=== PATIENT | male | born 1970 | race Caucasian/White ===

== ENCOUNTER 2024-03-22 19:14 | Inpatient (IN) | payer BC, SELFPAY ==
[2024-03-22] VITALS (14 sets, daily range): BP systolic 109–178; BP diastolic 74–101; PULSE 67; BMI 41.1
[2024-03-22 16:49] LABS: % Basophils 0.8 % (0-2); % Eosinophils 3.3 % (0-6); % Immature Granulocytes 0.3 % (0-0.5); % Lymphocytes 21.1 % (20.5-51.1); % Monocytes 8.6 % (1.7-9.3); % Neutrophils 65.9 % (42.2-75.2); Absolute Basophils 0.1 10^3/uL (0-0.2); Absolute Eosinophils 0.3 10^3/uL (0-0.7); Absolute Lymphocytes 2.1 10^3/uL (1.2-3.4); Absolute Monocytes 0.9 10^3/uL (0.1-0.6); Absolute Neutrophils 6.5 10^3/uL (1.4-6.5); Hematocrit 40.2 % (39.0-52.0); Hemoglobin 14.6 g/dL (13.0-18.0); Mean Corp Hgb Conc. 36.3 g/dL (33.0-37.0); Mean Corpuscular Hgb 32.4 pg (27.0-31.0); Mean Corpuscular Volume 89.3 fL (80.0-94.0); Mean Platelet Volume 10.1 fL (7.4-10.4); Nucleated Red Blood Cells % 0 % (-); Platelet Count 218 10^3/uL (130-400); Red Cell Dist. Width 12.6 % (11.5-14.5); White Blood Cell Count 9.9 10^3/uL (4.8-10.8)
--- NOTE | 2024-03-22 17:06 | ED.PDOC.TRB ---
ED Provider Triage
-
Patient seen by provider in Triage?: Seen in Triage
A medical screening examination has been initiated by a qualified medical provider. Based on the assessment performed at this time, it has been determined that an emergent medical condition may exist and the patient has been informed that further
medical evaluation and possible additional diagnostic testing may be needed.
This is a medical evaluation conducted in person to initiate diagnostic evaluation and provide initial therapeutics. Please see further documentation by the treating clinician.
GENERAL: Alert , in no apparent distress
EYE: No visual abnormalities
NECK: No visual changes
ENT: No visual abnormalities
CARDIAC:
LUNGS: Breathing normally
ABDOMEN:
NEUROLOGICAL: Alert and oriented, no visual focal neuro deficits
SKIN: Warm and dry, skin intact.
MUSCULOSKELETAL: No edema, well perfused. Moving normally
PSYCH: Normal and appropriate interaction.
HPI/RA Plan: Central chest pressure radiating to the shoulders and jaw intermittently without specific palliation or provocation over the past 3 days or so. Slightly worse today associated shortness of breath no nausea vomiting or diaphoresis. No
known history of heart disease. Heart and lung exam normal here. EKG with some nonspecific changes. No old EKGs for comparison. Troponin pending patient will need further otherwise stable at this time. No specific risk factors for PE
[2024-03-22 17:09] LABS: ALT (SGPT) 45 U/L (0-50); AST (SGOT) 41 U/L (17-59); Albumin 4.7 g/dl (3.5-5.0); Alkaline Phosphatase 101 U/L (38-126); Blood Urea Nitrogen 17 mg/dl (9-20); Calcium 10.2 mg/dl (8.4-10.2); Carbon Dioxide 19 mmol/L (22-30); Chloride 108 mmol/L (98-107); Glucose 91 mg/dl (70-99); Lipase 58 U/L (23-300); Potassium 3.9 mmol/L (3.5-5.1); Sodium 136 mmol/L (135-145); Total Bilirubin 0.9 mg/dl (0.2-1.3); Total Protein 7.3 g/dl (6.3-8.2); eGFR > 60.00
[2024-03-22] MEDS: ASPIRIN 325 MG PO (17:18)
--- NOTE | 2024-03-22 17:40 | ED.GENMED ---
History of Present Illness
General
Chief Complaint: Chest Pain
Source: patient
Exam Limitations: none
Time Seen by Provider: 03/22/24 17:40
Nursing documentation reviewed up to this point in time: agreed with
History of Present Illness
History of Present Illness:
53-year-old male presents emergency room complaining of central chest pressure rating to the shoulders and jaw intermittently for the past 3 days. Is worse today, with some shortness of breath. No history of coronary artery disease. Patient seen
in triage initially, with EKG is not revealing STEMI, but continued chest pain.
Past History
Past History
ED Past Medical History: GERD
ED Past Surgical History: None
Social History
Tobacco: Non-smoker
Alcohol: None
Drug: None
Personal:
Living: with family
Employment: Employed
Review of Systems
Review of Systems
Allergies reviewed?: Yes
All Other Systems: Not applicable
Constitutional: Reports no symptoms
EENT: Reports mouth pain
Respiratory: Reports trouble breathing
Cardiac: Reports chest pain
ABD/GI: Reports no symptoms
: Reports no symptoms
Musculoskeletal: Reports no symptoms
Skin: Reports no symptoms
Neurological: Reports no symptoms
Endocrine: Reports no symptoms
Hematologic/Lymphatic: Reports no symptoms
Psychiatric: Reports no symptoms
Phy Exam
Physical Exam
Physical Exam:
Physical Exam
General: Appears uncomfortable
Neck: supple. no meningeal signs. normal posterior pharynx
Heart: s1/s2 regular rate and rhythm, no murmur. equal radial
pulses.
HEENT: Pupils equal round reactive to light, EOMI
Lungs: no acute respiratory distress. clear bilaterally
Abdomen: normal bowel sounds. not tender. no CVAT
Neuro: alert and oriented. no focal neurological deficits cranial nerves II through XII intact
Skin: no rash
Psychiatric: well kept. interactive and cooperative
Extremities: no edema. no calf tenderness. negative homans. good distal pulses
Scores
Heart Score for Chest Pain Patients
STEMI patient?: No
History: Highly Suspicious
ECG: Nonspecific Repolarization
Age: >45 - <65 years
Risk Factors: No Risk Factors
Troponin: >/= 3 x Normal Limit
Heart Score for Chest Pain Patients: 6
Heart Score Risk: 20.3% MACE over next 6 weeks
Course
Orders/Labs/Results
Orders:
Orders
03/22/24 16:13
Electrocardiogram (*1) Urgent
Reason for Study: Chest Pain
EKG- Treatment ONCE
03/22/24 16:20
CXR2 [CR Chest - 2 Views ] Urgent
Comment: since
Reason For Exam: intermit chest pain and pressure
03/22/24 16:40
Complete Blood Count/With Diff Urgent
Comprehensive Metabolic Panel Urgent
Lipase Urgent
Troponin I Urgent
03/22/24 17:08
Aspirin 325 mg PO NOW STA
03/22/24 17:28
EKG [Electrocardiogram (*1)] Urgent
Reason for Study: Chest Pain
EKG- Treatment ONCE
03/22/24 17:43
Nitroglycerin Sublingual [Nitrostat (Sublingual)] 0.4 mg SL NOW STA
03/22/24 17:44
Lidocaine 2% Mpf [Xylocaine Mpf 2%] 400 mg .ROUTE .STK-MED ONE
03/22/24 17:46
Verapamil Injectable [Isoptin/Verapamil Injection] 5 mg .ROUTE .STK-MED ONE
03/22/24 17:47
Heparin 10,000 units .ROUTE .STK-MED ONE
Heparin 1000 Units/500 ml [Heparin] 1,000 units in 500 ml .ROUTE .STK-MED
Heparin Sodium,Porcine/Ns/Pf [Heparin 2000 Units/1000 ml] 2,000 unit in 1,000 ml .ROUTE .STK-MED
Nitroglycerin [Tridil] 1,500 mcg .ROUTE .STK-MED ONE
03/22/24 17:58
Fentanyl Citrate/Pf [Sublimaze] 100 mcg .ROUTE .STK-MED ONE
Midazolam HCl [Versed] 2 mg .ROUTE .STK-MED ONE
03/22/24 18:30
Heparin 5,000 units .ROUTE .STK-MED ONE
Ticagrelor [Brilinta] 180 mg .ROUTE .STK-MED ONE
03/22/24 18:41
Midazolam HCl [Versed] 2 mg .ROUTE .STK-MED ONE
Abnormal Lab Results
03/22/24 03/22/24 03/22/24
16:40 18:13 18:20
RBC 4.50 L 10^6/uL
(4.70-6.10)
MCH 32.4 H pg
(27.0-31.0)
Absolute Monos (auto) 0.9 H 10^3/uL
(0.1-0.6)
Chloride 108 H mmol/L
(98-107)
Carbon Dioxide 19 L mmol/L
(22-30)
Troponin I 0.560 H* ng/ml
POC ACT Low Range 229 H Seconds 297 H Seconds
(116-155) (116-155)
03/22/24
18:48
RBC
MCH
Absolute Monos (auto)
Chloride
Carbon Dioxide
Troponin I
POC ACT Low Range 397 H Seconds
(116-155)
03/22/24 16:40
03/22/24 16:40
Vital Signs
Initial and Last Documented VS:
Initial Vital Signs
Temp Pulse Resp BP Pulse Ox
98.2 F 78 16 172/101 98
03/22/24 16:14 03/22/24 16:14 03/22/24 16:14 03/22/24 16:14 03/22/24 16:14
Last Documented Vital Signs
Temp Pulse Resp BP Pulse Ox
98.2 F 66 12 143/80 98
03/22/24 16:14 03/22/24 18:00 03/22/24 18:00 03/22/24 17:50 03/22/24 17:50
MDM/Problems Addressed
Differential Diagnosis Includes:
PE, STEMI
MDM/Problems Addressed:
53-year-old male with ACS. EKG not revealing STEMI, but elevated troponin and continued pain. Discussed with Dr. Mcneil who will take to [facility].
*Pulse Oximetry
Patient hypoxic: no
*EKG
Interpreted by ED Provider?: Yes
EKG Intrepretation Date: 03/22/24
EKG Intrepretation Time: 16:16
Interpretation: abnormal
Comparison EKG: no comparison EKG present
Heart Rate: 68
Rate: normal
Rhythm: sinus
Savage: normal axis
Interval: normal interval
QRS Pattern: right bundle branch block
Ischemia: no ischemia
*Stitchdown Thread Laster Interpretation
Rate: normal
Interpretation: normal
Heart Rate: 76
Rhythm: sinus
*Critical Care Note
Total Time (30-74mins, 75-104mins- exclusive of procedures): Not Applicable
Patient Management
Social determinants of health affecting care: Living situation
Discussion with other providers: Fishery Division Chief (Cardiology Dr. Myers)
Escalation/DeEscalation of care consider admission/obs:
Admit to [facility] indicated
ED Attending Note
-
Portions of this chart may have been created with voice recognition software.� Occasional wrong word or��sound alike� substitutions may have occurred due to the inherent limitations of voice recognition software.
Discharge Plan
Departure
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
Date of Disposition: 03/22/24
Time of Disposition: 17:39
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
Presentation/result/management discussed w/ accepting MD/DO: Guidera, cardioinvasive
Condition: Serious
Discharge Problem:
Acute coronary syndrome
Interventions
Interventions:
*Risk Screen - Suicide Last Done: 03/22/24 17:51
*General Assessment Last Done: 03/22/24 17:38
*Neglect/Abuse Screening Last Done: 03/22/24 18:22
ED- Fall Risk Assessment Last Done: 03/22/24 17:51
*ED COVID-19 Vaccine History Last Done: 03/22/24 17:50
*Nursing Disposition Last Done: 03/22/24 18:22
ED- Cardiac Assessment Last Done: 03/22/24 17:51
Discharge Date and Time
Discharge Date/Time: 03/22/24 18:22
[2024-03-22] MEDS: NITROSTAT (SUBLINGUAL) 0.4 MG SL (17:47)
[2024-03-22 18:19] LABS: ACT-LR - POC 229 Seconds (116-155)
[2024-03-22 18:30] LABS: ACT-LR - POC 297 Seconds (116-155)
[2024-03-22 18:55] LABS: ACT-LR - POC 397 Seconds (116-155)
--- NOTE | 2024-03-22 19:09 | ITS.CL.CATH ---
Environmental Health And Safety Leader - Catheterization
Cardiac Catheterization
Procedure Report:
CARDIAC CATHETERIZATION REPORT
Date of Procedure: 03/22/2024
Referring: Faisal Lyles DO (CHRISTINER)
Indication: Inferior STEMI x 3 hours duration
HEMODYNAMIC DATA
AO: 121/83 mmHg
LV: 131/13 (21) mmHg
�
LEFT VENTRICULOGRAPHY: not performed
�
CORONARY ANGIOGRAPHY
Dominance: right
Left Main: normal
LAD: There is a 20-30% stenosis in the mid-LAD distal to the takeoff of the first diagonal branch. The remainder of the LAD system has mild luminal irregularities.
Circumflex: There is a complex 95% bifurcation lesion (1,0,0) at the bifurcation of the large OM2 and the continuation of the circumflex. OM1 is a small vessel with mild disease. The mid-LCx proximal to the OM2 has mild luminal disease.
RCA: The RCA is a dominant vessel with trivial luminal irregularities. The RCA terminates with a medium-sized RPDA and small posterolateral system.
PCI with RADHA to LCx: The LCx lesion was felt to be the culprit lesion for the patient's presentation and the decision was made to proceed with PCI with provision stenting of the mid-LCx into OM2 with protection of the distal LCx.. A BMW coronary
wire was placed in the distal OM2 and the distal LCx was protected with a Runthrough coronary wire. Initial lesion preparation was performed across the origin of the OM2 with a 2.0x15 mm balloon. Subsequent angiography demonstrated BERNICE 3 flow
distally. A 3.5x22 mm Medtronic RADHA was selected and deployed in the mid-LCx into OM2 at nominal pressure. Angiographic result was excellent with full apposition and expansion and no evidence of dissection and BERNICE-3 flow in the OM2 and jailed
distal LCx. Given concern for propagating thrombus or compromising the jailed LCx, and excellent proximal stent sizing, proximal optimization was not performed. After removal of wires, final angiography again demonstrated BERNICE-3 flow distally and no
evidence of complication. The guide was removed and a TR band placed.
Closure Device: TR band (10 mmHg)
�
Fluoro Time (mins): 11.5
Radiation (mGy): 1057.18
DAP (cm2.Gy): 100.44
�
CONCLUSIONS
1:� Coronary angiography demonstrates single vessel obstructive coronary artery disease in a right dominant system in the setting of STEMI with 95% stenosis involving the bifurcation of the mid-LCx and large OM2.
2:� Successful PCI to the mid-LCx into OM2 with placement of a 3.5x22 mm Medtronic RADHA.
3: Continue DAPT for at least 1 year with ASA and ticagrelor.
4. Aggressive secondary prevention of coronary artery disease with goal LDL<70
5. Smoking cessation
6. Echo prior to discharge
�
Copy to: Scott Serrano MD, PhD; Gregg Hamilton MD
�
Scott Serrano MD, PhD
--- NOTE | 2024-03-22 19:31 | CON.CAR ---
Medical History
-
Chief Complaint: CC
History of Present Illness:
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 He noted onset of intermittent exertional chest tightness 4 days ago- episodes came during exertion and had radiation to LUE. They became very
frequent and more intense this AM and at approximately 330 PM became unremitting. He was brought to ER and ECG nondiagnostic for inferior STEMI but suggestive with 1/2 mm MARCUS 2, 3, and aVF. Dr Lyles and I discussed the situation and STEMI alert
called.
Meds Omeprazole 20qd
All PCN
EXAM 125/76 P 76 RR 24
cor RR S1S2 no murmur
Lungs Clear
Ext 1+edema bilat LEs
Neuro nonfocal
Labs : Trop 0.56
IMP Probable IMI
Plan Immediate cath and probable PCI
Allergies / Home Medications
Allergy/AdvReac Type Severity Reaction Status Date / Time
Penicillins Allergy Anaphylaxis Verified 03/22/24 16:20
�Medication �Instructions �Recorded �Confirmed �Type
omeprazole 20 mg capsule,delayed 20 mg PO DAILY 03/22/24 03/22/24 History
release
Physical Exam
Vital Signs
Temp Pulse Resp BP Pulse Ox
98.2 F 66 12 143/80 98
03/22/24 16:14 03/22/24 18:00 03/22/24 18:00 03/22/24 17:50 03/22/24 17:50
Lab Results
03/22/24 16:40
03/22/24 16:40
Troponin I 0.560 ng/ml H* 03/22/24 16:40
[2024-03-22] MEDS: LOPRESSOR PO (19:56)
--- NOTE | 2024-03-22 20:01 | PTCARENOTE ---
received patient from the laboratory administrative director. AAOx3. EKG completed. SB-SR 50s-60s. bp stable. complaining of 2/10 R arm pain. patient states much improved from admission. R radial site CDI. TR band intact. +pulse/good cap refill. family at the bedside.
reviewed plan of care with patient and verbalized understanding.
per Dr. Myers-hold PM dose of lopressor and start in AM.
[2024-03-22] MEDS: NSS 1000 IV (20:10)
--- NOTE | 2024-03-22 21:11 | PTCARENOTE ---
patient states wearing CPAP at home. updated Adam LONDONO for CPAP order. order placed.
[2024-03-22] MEDS: TYLENOL 650 MG PO (22:29)
--- NOTE | 2024-03-22 22:39 | PTCARENOTE ---
Addendum entered by Rico Ramirez RN 03/22/24 23:21:
patient denies any pain at this time. CPAP placed by respiratory. R radial site intact. call melgar within reach.
Original Note:
continued 2/10 R shoulder pain. patient states its better but just not going away. troponin sent. discussed plan with Adam LONDONO. Tylenol given, see mar. educated patient to inform RN with any changes/increased pain.
R radial band removed. gauze/teg applied. + radial pulses. reviewed activity restrictions and verbalized understanding.
ambulated to the BR. steady on his feet. denies any lightheadedness/dizziness.
[2024-03-23] VITALS (7 sets, daily range): BP systolic 102–119; BP diastolic 59–85
[2024-03-23 03:58] LABS: Hematocrit 35.4 % (39.0-52.0); Hemoglobin 12.8 g/dL (13.0-18.0); Mean Corp Hgb Conc. 36.2 g/dL (33.0-37.0); Mean Corpuscular Hgb 32.7 pg (27.0-31.0); Mean Corpuscular Volume 90.3 fL (80.0-94.0); Mean Platelet Volume 10.3 fL (7.4-10.4); Platelet Count 190 10^3/uL (130-400); Red Blood Cell Count 3.92 10^6/uL (4.70-6.10); Red Cell Dist. Width 12.9 % (11.5-14.5); White Blood Cell Count 7.5 10^3/uL (4.8-10.8)
[2024-03-23 04:07] LABS: Blood Urea Nitrogen 16 mg/dl (9-20); Calcium 9.2 mg/dl (8.4-10.2); Carbon Dioxide 23 mmol/L (22-30); Chloride 109 mmol/L (98-107); Estimated Creatinine Clearance 116 ml/min; Glucose 95 mg/dl (70-99); HDL Cholesterol 52 mg/dl; LDL Cholesterol, Calculated 127 mg/dl; Potassium 4.1 mmol/L (3.5-5.1); Sodium 138 mmol/L (135-145); Total Cholesterol 205 mg/dl (50-199); Triglyceride 132 mg/dl (10-149); Very Low Density Lipoprotein 26 mg/dl (0-30); eGFR > 60.00
[2024-03-23 08:07] LABS: Glycohemoglobin (HgbA1c) 5.2 % (4.0-5.6)
[2024-03-23] MEDS: LOPRESSOR 25 MG PO (08:46)
[2024-03-23] MEDS: LOW STRENGTH ASPIRIN 81 MG PO (08:46)
[2024-03-23] MEDS: ZESTRIL 5 MG PO (08:46)
[2024-03-23] MEDS: BRILINTA 90 MG PO ×2 (08:46→20:40)
[2024-03-23] MEDS: TYLENOL 650 MG PO ×3 (08:58→22:21)
--- NOTE | 2024-03-23 09:04 | W.PN.CARDCBS ---
Addendum entered and electronically signed by Scott Serrano MD 03/23/24 11:24:
Patient seen an examined. Agree with note by MICHAEL George.
Mr. Baeza is a 53 year old male smoker with HLD and GERD presenting with inferior STEMI s/p PCI to culprit LCx/OM2 with 3.5x22 mm RADHA with excellent result. Patient today reports no chest pain and mild ongoing residual upper arm pain. Labs notable
for stable Cr and Hb, LDL 127 (prior to initiation of statin), A1c 5.2, trop rising to 3. ECG with improvement in inferior ST elevations and stable sinus bradycardia with iRBBB, no arrhythmias on tele.
Follow trop to peak and check echo today. Recommend continued DAPT with ASA/ticag (check ticag for cost, prasugrel would be second choice, followed by Plavix), and high intensity statin for goal LDL at least <70. Continue metoprolol, can consolidate
to succinate prior to discharge. Continue lisinopril. Aggressive risk factor management and particularly smoking cessation will be critical to his intermediate frame tender survival. Cardiac rehab and follow up with me in 1 month.
Original Note:
Today's Communication / Plan
-
continue post OK care
DAPT
Impression / Plan
-
PCP: Gregg Hamilton MD
CDY: Gokul Serrano MD (new to pt)
Impression/Plan:
Inferior STEMI - post PCI mid LCx into OM2 3.5x22mm RADHA
no cp, still with some residual right arm pain, rad site stable
serial troponin to peak, 3.06, Check ECHO today
tele SR/SB no ectopy
DAPT ASA/Brilinta, CM to eval cost
new start to metoprolol and lisinopril, monitor HR/BP titrate as able
LDL 127, high intensity statin
CArdiac rehab c/s
f/u CBC in 2-4 weeks
GERD - continue PPI
Smoking - cessation reinforced
continue to monitor on tele another 24 hours
�
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
Subjective
Date of Service: March 23, 2024
no cp, 2/10 right arm pain rad to shoulder, no sob
Objective
Labs:
03/23/24 03:40
03/23/24 03:40
Labs
Hgb 12.8 g/dL (13.0-18.0) L 03/23/24 03:40
Hct 35.4 % (39.0-52.0) L 03/23/24 03:40
Plt Count 190 10^3/uL (130-400) 03/23/24 03:40
Sodium 138 mmol/L (135-145) 03/23/24 03:40
Potassium 4.1 mmol/L (3.5-5.1) 03/23/24 03:40
BUN 16 mg/dl (9-20) 03/23/24 03:40
Creatinine 0.9 mg/dL (0.7-1.3) 03/23/24 03:40
Glucose 95 mg/dl (70-99) 03/23/24 03:40
Troponins
03/22/24 03/22/24 03/23/24
16:40 21:59 03:40
Troponin I 0.560 H* 1.360 H* D 3.060 H* D
Vital Signs and I&O:
Vital Signs
Temp Pulse Resp BP Pulse Ox
97.4 F 58 16 119/85 98
03/23/24 07:33 03/23/24 08:46 03/23/24 07:33 03/23/24 08:46 03/23/24 07:33
Vital Signs
Temp Pulse Resp BP Pulse Ox
97.4 F 58 16 119/85 98
03/23/24 07:33 03/23/24 08:46 03/23/24 07:33 03/23/24 08:46 03/23/24 07:33
Intake & Output
03/21/24 03/22/24 03/23/24 03/24/24
06:59 06:59 06:59 06:59
Intake Total 1150 / 1150 420 / 420
Balance 1150 / 1150 420 / 420
Physical Exam
Physical Exam
NAD< AOX3
S1, S2, RRR
CTAB< non labored, no wheeze
SNTND Bsx4
R rad site c/d/i no HT, good pulse
--- NOTE | 2024-03-23 09:44 | CM ---
Reviewed chart. Met with Mr. Baeza to review discharge plans. He states prior to admission he resides with his spouse, daughter and son in a one story home with one step to enter. He states prior to admission he was independent with ambulation
and adls. He states he uses a CPAP Machine at home and no other DME . He states he has a prescription plan and uses [facility] in [place]. Telephone call to [facility] to check on co-pay and if they have Brilinta in stock. His
co-pay is $35.00 a month. He has a commercial insurance so he can use the $5.00 coupon. Placed the coupon is his red discharge folder. [facility] in [place] does not have it in stock. Medical work-up in progress. The discharge plan is
to return home with his spouse and children when medically stable.
--- NOTE | 2024-03-23 12:08 | PTCARENOTE ---
Pt c/o intermittent 'chest tightness' since this morning. Pt states that it doesn't last long. Pt states that it worsened during the echocardiogram but is now gone. Will monitor.
--- NOTE | 2024-03-23 15:21 | PTCARENOTE ---
Pt continues to c/o right shoulder 'dull ache'. He rates this discomfort as 2 out of 10. Tylenol given. Will monitor.
[2024-03-23] MEDS: LOVENOX 40 MG SC (17:56)
[2024-03-23] MEDS: LIPITOR 80 MG PO (17:56)
[2024-03-23] MEDS: PROTONIX 20 MG PO (20:37)
--- NOTE | 2024-03-24 02:58 | PTCARENOTE ---
Rec'd pt at change of shift. Pt on cardiac technologist in normal sinus rhythm. Pt had mild right shoulder pain that is chronic and was given Tylenol per order for pain. Pt resting in bed with CPAP on and call melgar within reach.
[2024-03-24 04:27] VITALS: BP 101/64
[2024-03-24 04:44] VITALS: BP 101/64
[2024-03-24 04:49] VITALS: BMI 40.2
[2024-03-24 04:53] LABS: Hematocrit 35.2 % (39.0-52.0); Hemoglobin 12.5 g/dL (13.0-18.0); Mean Corp Hgb Conc. 35.5 g/dL (33.0-37.0); Mean Corpuscular Hgb 32.3 pg (27.0-31.0); Mean Platelet Volume 10.6 fL (7.4-10.4); Platelet Count 195 10^3/uL (130-400); Red Blood Cell Count 3.87 10^6/uL (4.70-6.10); White Blood Cell Count 7.2 10^3/uL (4.8-10.8)
[2024-03-24 05:17] LABS: Blood Urea Nitrogen 16 mg/dl (9-20); Calcium 9.6 mg/dl (8.4-10.2); Carbon Dioxide 23 mmol/L (22-30); Chloride 107 mmol/L (98-107); Estimated Creatinine Clearance 115 ml/min; Glucose 91 mg/dl (70-99); Potassium 4.4 mmol/L (3.5-5.1); Sodium 135 mmol/L (135-145); eGFR > 60.00
[2024-03-24 07:35] VITALS: BP 106/67
--- NOTE | 2024-03-24 07:45 | W.PN.CARDCBS ---
Addendum entered and electronically signed by Manuel Velazquez MD 03/24/24 13:36:
I saw and examined the patient.
The SEAWEED HARVESTER's note was reviewed and I agree with the note.
Comment: Patient seen and examined on the day of discharge. He is feeling well without complaint to me. On exam he has a regular rate and rhythm normal S1-S2 no murmur rubs or gallops were appreciated. Right radial artery site intact. Given his
inferior STEMI, we discussed the need for dual antiplatelet therapy without any interruption. He will continue on his KATIE inhibitor, beta-dulce and high-dose statin. We discussed the need for complete smoking cessation. Additionally given his
moderate moderate obesity, would recommend GLP-1 agonist�Ozempic given CV benefits in addition to that of treating obesity. I asked him to discuss this with his PCP. Will arrange follow-up.
Addendum entered and electronically signed by VERONICA Ricketts 03/24/24 11:18:
BMI 40.1, class III obesity due to excess calories - reinforced heart healthy diet, wt loss and exercise
Original Note:
Today's Communication / Plan
-
oob ambulate
poss d/c home later today if VSS
Impression / Plan
-
PCP: Gregg Hamilton MD
CDY: Gokul Serrano MD (new to pt)
Impression/Plan:
Inferior STEMI - post PCI mid LCx into OM2 3.5x22mm RADHA
no cp, still with some residual right arm pain ? musculoskeletal, rad site stable
troponin peaked at 3.06
ECHO- EF 55-60%, no sig WMA, mild LVH, no valve disease
tele SR/SB no ectopy
DAPT ASA/Brilinta
HR low will switch to Toprol 25mg daily, continue lisinopril 5mg, monitor bp at home
LDL 127, continue atorvastatin 80mg daily
Cardiac rehab c/s
f/u CBC in 2-4 weeks
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
GERD - continue PPI
Smoking - cessation reinforced
CHARBEL/CPAP
monitor HR/BP after am meds, oob ambulate hallways
poss d/c home later this afternoon
�
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
Subjective
Date of Service: March 24, 2024
no cp, notes some mild SOB and still with R arm pain 09/27 ? musculoskeletal
Objective
Labs:
03/24/24 04:38
03/24/24 04:38
Labs
Hgb 12.5 g/dL (13.0-18.0) L 03/24/24 04:38
Hct 35.2 % (39.0-52.0) L 03/24/24 04:38
Plt Count 195 10^3/uL (130-400) 03/24/24 04:38
Sodium 135 mmol/L (135-145) 03/24/24 04:38
Potassium 4.4 mmol/L (3.5-5.1) 03/24/24 04:38
BUN 16 mg/dl (9-20) 03/24/24 04:38
Creatinine 0.9 mg/dL (0.7-1.3) 03/24/24 04:38
Glucose 91 mg/dl (70-99) 03/24/24 04:38
Troponins
03/22/24 03/22/24 03/23/24
16:40 21:59 03:40
Troponin I 0.560 H* 1.360 H* D 3.060 H* D
03/23/24
10:01
Troponin I 2.540 H*
Vital Signs and I&O:
Vital Signs
Temp Pulse Resp BP Pulse Ox
97.6 F 58 18 101/64 97
03/24/24 07:33 03/24/24 07:33 03/24/24 07:33 03/24/24 04:44 03/24/24 07:33
Vital Signs
Temp Pulse Resp BP Pulse Ox
97.6 F 58 18 101/64 97
03/24/24 07:33 03/24/24 07:33 03/24/24 07:33 03/24/24 04:44 03/24/24 07:33
Intake & Output
03/22/24 03/23/24 03/24/24 03/25/24
06:59 06:59 06:59 06:59
Intake Total 1150 / 1150 420 / 420
Balance 1150 / 1150 420 / 420
Physical Exam
Physical Exam
NAD, AOX3
S1, S2, RRR
CTAB, non labored, no wheeze
SNTND bsx4
Rad site stable, good pulse
[2024-03-24] MEDS: ZESTRIL 5 MG PO (08:21)
[2024-03-24] MEDS: PROTONIX 20 MG PO (08:21)
[2024-03-24] MEDS: BRILINTA 90 MG PO (08:21)
[2024-03-24] MEDS: LOW STRENGTH ASPIRIN 81 MG PO (08:22)
[2024-03-24] MEDS: TOPROL XL 25 MG PO (08:22)
[2024-03-24] MEDS: TYLENOL 650 MG PO (10:04)
--- NOTE | 2024-03-24 10:06 | PN.CDI ---
CDI
- -
CDI:
Physician Documentation Request
Admit Date: 03/22/24 19:14
Dear Stephanie George NP,
Please review the following and provide your response in the progress notes.
Clinical Indicators:
Height: 5 ft 6 in
Weight:248 lb 10.9 oz
BMI: 41.1
If possible, please provide an associated diagnosis related to the abnormal BMI, such as:
BMI > or = to 40
Obesity:
Due to excess calories
Drug induced
Due to other cause
Severe or morbid obesity:
With alveolar hypoventilation (Obesity hypoventilation syndrome)
Without alveolar hypoventilation
- Other
Use of terms such as suspected, likely, concern for, or probable (associated with a specific diagnosis that is being evaluated, monitored, or treated as if it exists) are acceptable and can be coded in the inpatient setting, when documented at the
time of discharge.
Thank you,
Sravanthi Castanon RN
CDI Specialist
[place] [employer]
Please use your independent medical judgment in providing your response.
[2024-03-24 10:58] VITALS: BP 106/75
--- NOTE | 2024-03-24 12:24 | CM ---
Reviewed chart. Telephone call to [facility] to check if Brilinta is there. Brilinta 90 mg po bid is there and will be ready for pick-up this afternoon. Prior to admission he resides with his spouse, daughter and son in a one story home with
one step to enter. Prior to admission he was independent with ambulation and adls. He has a CPAP Machine at home and no other DME in the home. He has a prescription plan and uses [facility]. Medical work-up in progress. The discharge
plan is to return home with his family when medically stable.
--- NOTE | 2024-03-24 14:05 | W.DS.TRANS ---
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
-
Discharge Instructions:
Discharge Diagnosis/Procedures STEMI, Angioplasty with stent to left circumflex
artery
Diet Low Cholesterol
Activity No strenuous activity
Additional Activity for 2 weeks
Other Services Cardiac Rehab
Instructions:
Stand-Alone Forms: DC Instructions- Cath/EP Lab
Return to Work
Changes to Home Medications: Yes
Discharge Medications:
DC Medications w/original date entered in [employer]
omeprazole 20 mg capsule,delayed release 20 mg PO DAILY 03/22/24
ticagrelor 90 mg tablet (Brilinta) 90 mg PO BID #180 tabs 03/23/24
aspirin 81 mg chewable tablet 81 mg PO DAILY #1 tab 03/24/24
atorvastatin 80 mg tablet 80 mg PO QPM #90 tabs 03/24/24
lisinopril 5 mg tablet 5 mg PO DAILY #90 tabs 03/24/24
metoprolol succinate 25 mg tablet,extended release 24 hr 25 mg PO DAILY #90 tabs 03/24/24
nitroglycerin 0.4 mg sublingual tablet 0.4 mg sublingual [id number] PRN chest pain #25 tabs 03/24/24
Home Medication Changes
all new except omeprazole
Pending Results: No
== END 2024-03-24 14:48 | disposition home or self-care (01) | DRG 322 ==
LOC: IVU 19:14
PROVIDERS: Nurse Practitioner Adult Health; Student in an Organized Health Care Education/Training Program; ADMITTING PHYSICIAN Internal Medicine Cardiovascular Disease; EMERGENCY PHYSICIAN Emergency Medicine
PROC: B211YZZ Fluoroscopy of Multiple Coronary Arteries using Other Contrast (ICD-10-PCS; 2024-03-22)
PROC: 0270346 Dilation of Coronary Artery, One Artery, Bifurcation, with Drug-eluting Intraluminal Device, Percutaneous Approach (ICD-10-PCS; 2024-03-22)
PROC: 4A023N7 Measurement of Cardiac Sampling and Pressure, Left Heart, Percutaneous Approach (ICD-10-PCS; 2024-03-22)
DX: I21.19 ST elevation (STEMI) myocardial infarction involving other coronary artery of inferior wall (principal); Z68.41 Body mass index [BMI] 40.0-44.9, adult; I25.10 Atherosclerotic heart disease of native coronary artery without angina pectoris; G47.33 Obstructive sleep apnea (adult) (pediatric); K21.9 Gastro-esophageal reflux disease without esophagitis; E66.01 Morbid (severe) obesity due to excess calories; E78.5 Hyperlipidemia, unspecified; F17.210 Nicotine dependence, cigarettes, uncomplicated
CPT/HCPCS: 71046; 80048; 80053; 80061; 83036; 83690; 84484; 85025; 85027; 85347; 93005; 93306; 93458; 94660; 99285; 99406; C1725; C1769; C1874; C1894; C9600; C9606

== ENCOUNTER 2024-03-26 21:31 | Inpatient (IN) | payer BC, SELFPAY ==
[2024-03-26] VITALS (20 sets, daily range): BP systolic 78–122; BP diastolic 48–84
--- NOTE | 2024-03-26 15:02 | ED.GENMED ---
History of Present Illness
General
Chief Complaint: Chest Pain
Source: patient
Time Seen by Provider: 03/26/24 14:45
History of Present Illness
History of Present Illness:
53-year-old male presents to the emergency room complaining of chest pain. Pain is located in the center of his chest and described as a heaviness. It is worse with deep breath. Patient was hospitalized here at [facility] for a acute
myocardial infarction. He had a cardiac catheterization 4 days ago at which point he had a stent placed. Prior to the procedure the patient chest pain improved to a 1 out of 10. It continued to have 1 out of 10 while he was here. Last night the
pain seemed to get much worse. He feels mildly nauseous and mildly short of breath. He has pain in his muscles particularly his lower extremities as well. No fever or chills.
Past History
Past History
ED Past Medical History: GERD
ED Past Surgical History: None
Social History
Tobacco: Non-smoker
Alcohol: None
Drug: None
Personal:
Living: with family
Employment: Employed
Phy Exam
Physical Exam
Physical Exam:
General: Awake, Alert, Oriented X3. No acute distress.
Vitals: unremarkable
Head: Atraumatic
Eyes: Pupils equal, EOMI
Throat: Airway intact, no exudates
Neck: Trachea midline
Lungs: Clear and equal b/l
Heart: Regular rate, no murmurs
Abd: Soft, Nontender, No pulsatile mass
Neuro: Nonfocal
Skin: Warm, dry, no rash
Extremities: pulses equal b/l, no edema
Scores
Heart Score for Chest Pain Patients
STEMI patient?: No
History: Moderately Suspicious
ECG: Nonspecific Repolarization
Age: >45 - <65 years
Risk Factors: >/= 3 Risk Factors or History of CAD
Troponin: >/= 3 x Normal Limit
Heart Score for Chest Pain Patients: 7
Heart Score Risk: 72.7 % MACE over next 6 weeks
Course
Orders/Labs/Results
Orders:
Orders
03/26/24 14:13
Electrocardiogram (*1) Urgent
Reason for Study: Chest Pain
EKG- Treatment ONCE
03/26/24 14:58
Ketorolac [Toradol] 15 mg IV NOW STA
03/26/24 14:59
CR Chest - 2 Views Urgent
Comment:
Reason For Exam: chest pain
03/26/24 15:25
Complete Blood Count/With Diff Urgent
Comprehensive Metabolic Panel Urgent
Troponin I Urgent
03/26/24 17:39
Electrocardiogram (*1) Urgent
Reason for Study: Chest Pain
EKG- Treatment ONCE
03/26/24 18:16
Troponin I Urgent
03/26/24 19:39
0.9% Sodium Chloride 500 ml [Nss] 500 ml IV BOLUS
Aspirin Chewable [Low Strength Aspirin] 324 mg PO NOW STA
Nitroglycerin 100 mg/250 ml [Nitroglycerin Premix] 100 mg in 250 ml IV NOW
Initial dose in mcg/min, then titrate:: 20
Titrate to keep:: Chest Pain Free
Titrate by mcg/min:: 5 mcg/min, may increase by 10 mcg/min if dose > 20 mcg/min
Frequency of titrations (minutes):: every 3-5 minutes
Maximum dose in mcg/min:: 200
Begin to taper infusion when:: Remained at goal for 2hrs
Taper by mcg/min:: 5 mcg/min
Frequency of taper (minutes) if patient maintains goal:: 30
Taper to off?: Yes
If infusion off & no longer maintaining goal:: Contact Provider
Pharmacy Request to Place See Dose Instructions PO NOW STA
Discontinue all Active Warfarin orders?: Yes
Nursing to Place Non Medication Order As Directed
Physician Order: PTT 6 hours after initial start of Heparin infusion
03/26/24 19:45
Heparin 49188 Units/250 ml 25,000 units in 250 ml IV PER PROTOCOL
Weight to be used for heparin protocol in kilograms (kg):: 115
Protocol:: Cardiac Tx/Acute Coronary
PTT Goal Range to be used:: PTT 73 to 111 seconds
Order type:: Initial
INITIAL Infusion Dose (UNITS/KG/hr) & then follow protocol:: 15 units/kg/hr
Infusion Dose in UNITS/hr & then follow protocol (UNITS/hr):: 1,500
INFUSION RATE in mL/hr & then follow protocol (mL/hr):: 15
PTT less than or equal to 64 seconds:: Increase rate by 200 units/hr (+ 2 mL/hr)
PTT 64.1 to 72.9 seconds:: Increase rate by 100 units/hr (+ 1 mL/hr)
PTT 73 to 111 seconds:: Target Range. No change in rate.
PTT 111.1 to 130.9 seconds:: Decrease rate by 100 units/hr (- 1 mL/hr)
PTT 131 to 199.9 seconds:: HOLD for 1 hr. Then decrease rate by 200 units/hr (- 2 mL/hr)
PTT greater than or equal to 200 seconds:: HOLD for 2 hrs & Notify Provider. Then decrease by 200 units/hr (-
2 mL/hr)
Lab follow-up:: Each change, PTT q6h until 2 consecutive are therapeutic. Then PTT
daily.
03/26/24 20:00
PTT Urgent
Comment: Obtain baseline before beginning heparin infusion if not already collected
Pharmacy Request to Place See Dose Instructions IV DIRECTED
03/26/24 20:19
Nitroglycerin Sublingual [Nitrostat (Sublingual)] 0.4 mg SL NOW STA
03/26/24 20:21
Nitroglycerin Sublingual [Nitrostat (Sublingual)] 0.4 mg .ROUTE .STK-MED ONE
Abnormal Lab Results
03/26/24 03/26/24
15:25 18:16
RBC 4.13 L 10^6/uL
(4.70-6.10)
Hct 36.9 L %
(39.0-52.0)
MCH 32.7 H pg
(27.0-31.0)
MPV 10.6 H fL
(7.4-10.4)
Absolute Monos (auto) 0.7 H 10^3/uL
(0.1-0.6)
Monocytes % 9.6 H %
(1.7-9.3)
Sodium 134 L mmol/L
(135-145)
Troponin I 0.588 H* ng/ml 0.750 H* D ng/ml
03/26/24 15:25
03/26/24 15:25
Vital Signs
Initial and Last Documented VS:
Initial Vital Signs
Temp Pulse Resp BP Pulse Ox
98.0 F 58 22 103/57 100
03/26/24 14:16 03/26/24 14:16 03/26/24 14:16 03/26/24 14:16 03/26/24 14:16
Last Documented Vital Signs
Temp Pulse Resp BP Pulse Ox
98.0 F 48 11 121/74 99
03/26/24 14:16 03/26/24 19:30 03/26/24 19:30 03/26/24 20:21 03/26/24 19:30
MDM/Problems Addressed
Differential Diagnosis Includes:
Rigoberto syndrome, stent restenosis, acute coronary syndrome
MDM/Problems Addressed:
Patient presents with chest pain few days after cardiac catheterization. His EKG does not show ST elevation. First troponin was 0.0588. This was thought to be about where his troponin should be trending to at this point. However a troponin 3
hours later was more elevated at 0.75 at this point consideration for acute coronary syndrome or other complication from stenting moved up on the differential. Will treat with heparin and nitro. I did discuss the patient's presentation with
aCroline. Patient will be hospitalized for further evaluation. Repeat EKG showed no acute changes
Chronic conditions affecting care: HTN and CAD
*Radiology
Radiology exam reviewed: radiology read reviewed
*Pulse Oximetry
Patient hypoxic: no
*EKG
Interpreted by ED Provider?: Yes
Interpretation: abnormal
Heart Rate: 52
Rate: bradycardiac
Rhythm: sinus
Spencer: normal axis
Interval: normal interval
QRS Pattern: normal QRS
Ischemia: no ischemia
*Radiator Specialist Interpretation
Rate: bradycardiac
Interpretation: abnormal
Rhythm: sinus
*Critical Care Note
Total Time (30-74mins, 75-104mins- exclusive of procedures): 35 min
comment:
Critical care statement: A total of 35 minutes of critical care time was provided for this patient. This includes management of unstable vital signs, evaluation of the patient at bedside, reviewing the patient's pertinent medical records, discussion
with consultants, review of old EKGs and review of pertinent medical records. This time with separate from time utilized to perform the aforementioned documented procedures
ED Attending Note
-
Portions of this chart may have been created with voice recognition software.� Occasional wrong word or��sound alike� substitutions may have occurred due to the inherent limitations of voice recognition software.
Discharge Plan
Departure
Patient Disposition: Admit
Date of Disposition: 03/26/24
Time of Disposition: 20:05
Admit to: IVU
Presentation/result/management discussed w/ accepting MD/DO: Hospitalist
Condition: Fair
Discharge Problem:
Chest pain, Coronary artery disease
Prescriptions:
No Action
omeprazole 20 mg Capsule,Delayed Release(/Ec)
20 mg PO DAILY
Brilinta 90 mg Tablet
90 mg PO BID Qty: 180 5RF
atorvastatin 80 mg Tablet
80 mg PO QPM Qty: 90 5RF
aspirin 81 mg Tablet,Chewable
81 mg PO DAILY Qty: 1 0RF
lisinopril 5 mg Tablet
5 mg PO DAILY Qty: 90 5RF
metoprolol succinate 25 mg Tablet Extended Release 24 Hr
25 mg PO DAILY Qty: 90 5RF
nitroglycerin 0.4 mg tablet, sublingual
0.4 mg sublingual [id number] PRN (Reason: chest pain) Qty: 25 5RF
Referrals:
Gregg Hamilton MD [Family Provider] -
Interventions
Interventions:
*Risk Screen - Suicide Last Done: 03/26/24 14:16
*General Assessment Last Done: 03/26/24 14:16
*Neglect/Abuse Screening Last Done: 03/26/24 14:16
ED- Cardiac Assessment Last Done: 03/26/24 15:23
Discharge Date and Time
Print Language: INDONESIAN
[2024-03-26] MEDS: TORADOL 15 MG IV (15:23)
[2024-03-26 15:40] LABS: % Basophils 1.3 % (0-2); % Eosinophils 4.4 % (0-6); % Immature Granulocytes 0.4 % (0-0.5); % Lymphocytes 26.9 % (20.5-51.1); % Monocytes 9.6 % (1.7-9.3); % Neutrophils 57.4 % (42.2-75.2); Absolute Basophils 0.1 10^3/uL (0-0.2); Absolute Eosinophils 0.3 10^3/uL (0-0.7); Absolute Lymphocytes 1.9 10^3/uL (1.2-3.4); Absolute Monocytes 0.7 10^3/uL (0.1-0.6); Hematocrit 36.9 % (39.0-52.0); Hemoglobin 13.5 g/dL (13.0-18.0); Mean Corp Hgb Conc. 36.6 g/dL (33.0-37.0); Mean Corpuscular Hgb 32.7 pg (27.0-31.0); Mean Corpuscular Volume 89.3 fL (80.0-94.0); Mean Platelet Volume 10.6 fL (7.4-10.4); Nucleated Red Blood Cells % 0 % (-); Platelet Count 218 10^3/uL (130-400); Red Blood Cell Count 4.13 10^6/uL (4.70-6.10); Red Cell Dist. Width 12.5 % (11.5-14.5)
[2024-03-26 15:49] LABS: ALT (SGPT) 50 U/L (0-50); AST (SGOT) 41 U/L (17-59); Albumin 4.4 g/dl (3.5-5.0); Alkaline Phosphatase 73 U/L (38-126); Blood Urea Nitrogen 18 mg/dl (9-20); Calcium 9.7 mg/dl (8.4-10.2); Carbon Dioxide 22 mmol/L (22-30); Chloride 103 mmol/L (98-107); Glucose 83 mg/dl (70-99); Potassium 4.2 mmol/L (3.5-5.1); Sodium 134 mmol/L (135-145); Total Bilirubin 1.1 mg/dl (0.2-1.3); Total Protein 6.8 g/dl (6.3-8.2); eGFR > 60.00
[2024-03-26 16:09] LABS: Troponin I 0.588 ng/ml
[2024-03-26] MEDS: LOW STRENGTH ASPIRIN 324 MG PO (20:04)
[2024-03-26] MEDS: NSS 500 IV (20:07)
[2024-03-26] MEDS: NITROGLYCERIN PREMIX 250 IV (20:07)
[2024-03-26 20:16] LABS: APTT 29.1 Sec (23.4-35.0)
[2024-03-26] MEDS: NITROSTAT (SUBLINGUAL) 0.4 MG SL (20:21)
--- NOTE | 2024-03-26 21:13 | HPS.HSE ---
Addendum entered and electronically signed by Manuel Velazquez MD 03/26/24 23:37:
I saw and examined the patient.
The RUBBER GOODS TESTER WATER's note was reviewed and I agree with the note.
Comment: 53-year-old gentleman with a past medical history of recent ST elevation GA status post PCI on 03/22/2024 of mid left circumflex into an OM 2 branch, CHARBEL on CPAP, hyperlipidemia and smoker who was discharged 2 days ago. He reports to me
today that when he was discharged she had a baseline chest pressure like pain chest pressure-like pain of about 1-2 out of 10. He reports telling the team however when I saw him on the day of discharge he did not tell me of this pain. He said this
pain is at baseline but over the last 2 days he has had episodes when it would come more 'sharp'. This seems like a more intense pain. He could not link to anything today it came on when he was walking around the store. It resolved with rest. It
is not worse with inspiration or position. He has been compliant with his DAPT. He has not had a cigarette since discharge. He received nitroglycerin in the ED and this resulted in hypotension but relief of pain. Currently, he is at a 0-1 out of
10. He feels so much better. Of note he reports that this feels nothing like his pain on the day of admission of his GA that was a 20 out of 10 and so severe that this reminds him nothing of that. On exam he appears well without distress. He has
a regular rate and rhythm normal S1-S2 no murmur observed were appreciated lungs were clear to auscultation bilaterally abdomen was soft nontender nondistended. Initial troponin was 0.588 on repeat it was 0.750 last checked before prior discharge
on 03/23/2024 was 2.540 with a peak of 3.060. EKG currently shows sinus bradycardia with inferior infarct pattern, nonspecific ST changes inferiorly with T wave inversion in lead III, compared incomplete right bundle branch block compared to the
prior at 5:43 PM no significant change. Unclear what to make of chest pain. Main differential diagnosis is acute ISR vs Dresslers. However, Ecg unimpressive for either and patient if feeling much better. Elevated, rising troponin c/f acute
process. Vital signs improved. Agree with heparin drip for now as heart silhouette normal on cxr. I will reach out to the interventional team given he is complaining of a constant 1-2/10 pain since discharge. Additionally, I will add probnp and
check an echo in am or sooner if needed. For now will keep NPO. Troponin just sent and will trend.
Original Note:
Family Physician
-
Family Physician: Gregg Hamilton
Chief Complaint
-
chest pain
History of Present Illness
Mr. Baeza is a pleasant 53-year-old male with pmh of GERD, STEMI s/p stenting (03/22/2024), CHARBEL with CPAP, HLD presents to the emergency room complaining of chest pain. Pain is located in the center of his chest and described as a heaviness. It
is worse with deep breath. Patient denies diaphoresis, nausea, vomiting. Patient does note some SOB and dyspnea on exertion. Patient was hospitalized here at [facility] for a acute myocardial infarction on 03/22 and discharged on 03/24. He
had a cardiac catheterization 4 days ago at which point he had a stent placed. Prior to the procedure the patient chest pain improved to a 1 out of 10. It continued to have 1 out of 10 while he was here. Last night the pain seemed to get much
worse 4/10. He has joint pain and leg cramps which seem to get worse at bedtime. No fever or chills. Of note, he started Atorvastatin 80 mg during his hospital stay and was told his symptoms could be side effect of the medication. He states he
has been compliant with all his medications.
Medical History
Past Medical History
Past Medical History: Reports GERD, Hypercholesterolemia and Other (CHARBEL)
Past Surgical History: Reports None
Social History
Tobacco: Smoker
Alcohol: Occasional
Drug: None
Personal:
Living: With Family
Employment: Employed
Family History
Family History: Not pertinent
Allergies / Home Medications
Allergies reflects when Allergies were last updated in [facility].
Home Medications with original date entered in [facility]
Allergy/Medication List:
Allergies
Allergy/AdvReac Type Severity Reaction Status Date / Time
Penicillins Allergy Anaphylaxis Verified 03/22/24 16:20
Home Medications
omeprazole 20 mg capsule,delayed release 20 mg PO DAILY 03/22/24
ticagrelor 90 mg tablet (Brilinta) 90 mg PO BID #180 tabs 03/23/24
aspirin 81 mg chewable tablet 81 mg PO DAILY #1 tab 03/24/24
atorvastatin 80 mg tablet 80 mg PO QPM #90 tabs 03/24/24
lisinopril 5 mg tablet 5 mg PO DAILY #90 tabs 03/24/24
metoprolol succinate 25 mg tablet,extended release 24 hr 25 mg PO DAILY #90 tabs 03/24/24
nitroglycerin 0.4 mg sublingual tablet 0.4 mg sublingual [id number] PRN chest pain #25 tabs 03/24/24
Review of Systems
-
History Source: Patient
A 12 point ROS was completed and negative except as noted: Yes
Constitutional: Reports No Symptoms
EENT: Reports No Symptoms
Respiratory: Reports No Symptoms
Cardiac: Reports Chest Pain
Abdomen/GI: Reports No Symptoms
: Reports No Symptoms
Musculoskeletal: Reports Joint Pain and Muscle Pain
Skin: Reports No Symptoms
Neurological: Reports No Symptoms
Endocrine: Reports No Symptoms
Hematologic/Lymphatic: Reports No Symptoms
Psych: Reports Calm
Physical Exam
Vital Signs
Vital Signs
Temp Pulse Resp BP Pulse Ox
98.0 F 46 16 115/84 98
03/26/24 14:16 03/26/24 21:00 03/26/24 20:34 03/26/24 21:00 03/26/24 21:00
Physical Exam
General: Well Developed, Well Nourished and Comfortable
HEENT: NormoCephalic, Anicteric and Moist mucous membranes
Respiratory: Clear
Cardiac: S1/S2 and Bradycardia
Breast: Deferred by me
GI: Soft, Non Tender and Non Distended
Genito-urinary: Deferred by me
Musculoskeletal: No Clubbing, No Cyanosis and No Edema
Skin: Warm and Dry
Neuro: Awake, Alert, Oriented and AO x 3
Psych: Calm and Intact Judgment/Insight
Laboratory Results
-
03/26/24 15:25
03/26/24 15:25
Laboratory Results
APTT 29.1 Sec (23.4-35.0) 03/26/24 20:00
Total Bilirubin 1.1 mg/dl (0.2-1.3) 03/26/24 15:25
AST 41 U/L (17-59) 03/26/24 15:25
ALT 50 U/L (0-50) 03/26/24 15:25
Alkaline Phosphatase 73 U/L (38-126) 03/26/24 15:25
Troponin I 0.750 ng/ml H* D 03/26/24 18:16
Impression/Plan
-
IMPRESSION:
Mr. Baeza is a pleasant 53-year-old male with pmh of GERD, HTN, STEMI s/p stenting (03/22/2024), CHARBEL with CPAP, HLD presents to the emergency room complaining of chest pain. Pain is located in the center of his chest and described as a heaviness.
It is worse with deep breath. Patient denies diaphoresis, nausea, vomiting. Patient does note some SOB and dyspnea on exertion. Patient was hospitalized here at [facility] for a acute myocardial infarction on 03/22 and discharged on 03/24. He
had a cardiac catheterization 4 days ago at which point he had a stent placed. Prior to the procedure the patient chest pain improved to a 1 out of 10. It continued to have 1 out of 10 while he was here. Last night the pain seemed to get much
worse 4/10. He has joint pain and leg cramps which seem to get worse at bedtime. No fever or chills. Of note, he started Atorvastatin 80 mg during his hospital stay and was told his symptoms could be side effect of the medication. He states he
has been compliant with all his medications.
PLAN:
Admit to IVU under Cardiology
#Chest Pain
#CAD
#Status post successful stenting of mid circumflex using 3.5 x 22mm drug-eluting stent on 03/22/2024 for recent STEMI
-Tele
-Heparin gtt
-Nitro gtt (if BP permits)
-trend trops, initial trop 0.588 ->0.750
-EKG showed sinus bradycardia otherwise normal ECG
-Plan for cardiac cath
-continue aspirin and brilinta
#HTN
-continue lisinopril
-continue metoprolol
#HLD
-was on atorvastatin, hold due to side effects, may have to consider repatha or praluent
#CHARBEL
-continue CPAP
#GERD
-continue omeprazole
DVT prophylaxis: heparin gtt
Full code
[2024-03-26] MEDS: HEPARIN 25000 UNITS/250 ML IV (21:36)
[2024-03-26 23:35] LABS: Troponin I 0.704 ng/ml
--- NOTE | 2024-03-26 23:45 | W.PN.UPDATE ---
Update Note
Progress Note Update
Spoke to Dr. Brown covering soldering machine operator helper. I am very thankful for his input. He reviewed the cath images from his initial catheterization. It appears there was a small OM 3 branch that was jailed by the stent that lead into the OM
2. This had good flow at the time. I suspect this is causing the issue. Being as he is feeling back to his baseline from discharge at a 1-2 out of 10 pain and appears comfortable with stable vital signs with improving troponin, will continue to
monitor. He recommended strict bedrest with bedside commode. He agrees with a heparin drip. We will get an echocardiogram in the morning. I spoke to his nurse Pankaj and he will let me know if there is any issue.Plan will be for a relook on Friday
or sooner if he had progressive sympotms.
[2024-03-27] VITALS (11 sets, daily range): BP systolic 82–117; BP diastolic 48–78; PULSE 52–57; BMI 39.9
--- NOTE | 2024-03-27 00:33 | PTCARENOTE ---
Pt admitted to IVU ~2250. Pt belongings w/ pt, at bedside. Oriented to unit. HR SB. Heparin infusing at 1500u/hr. Pt c/o 1-2 out of 10 'tightness' in L chest that worsens w/ activity. Dr. Velazquez at bedside, pt updated on plan of care and
limited activity. Pt informed to notify RN if CP worsens, any n/v, SOB, or any other changes. Call melgar within reach.
[2024-03-27 04:08] LABS: % Basophils 0.9 % (0-2); % Eosinophils 4.1 % (0-6); % Immature Granulocytes 0.3 % (0-0.5); % Lymphocytes 28.1 % (20.5-51.1); % Monocytes 8.5 % (1.7-9.3); % Neutrophils 58.1 % (42.2-75.2); Absolute Basophils 0.1 10^3/uL (0-0.2); Absolute Eosinophils 0.3 10^3/uL (0-0.7); Absolute Lymphocytes 2.2 10^3/uL (1.2-3.4); Absolute Monocytes 0.7 10^3/uL (0.1-0.6); Absolute Neutrophils 4.5 10^3/uL (1.4-6.5); Hematocrit 36.4 % (39.0-52.0); Hemoglobin 13.1 g/dL (13.0-18.0); Mean Corpuscular Hgb 33.2 pg (27.0-31.0); Mean Corpuscular Volume 92.2 fL (80.0-94.0); Mean Platelet Volume 10.8 fL (7.4-10.4); Nucleated Red Blood Cells % 0 % (-); Platelet Count 179 10^3/uL (130-400); Red Blood Cell Count 3.95 10^6/uL (4.70-6.10); Red Cell Dist. Width 12.5 % (11.5-14.5); White Blood Cell Count 7.8 10^3/uL (4.8-10.8)
[2024-03-27 04:13] LABS: INR 1.09; PT 13.9 Sec (11.4-14.6)
[2024-03-27 04:14] LABS: APTT 64.9 Sec (23.4-35.0)
[2024-03-27 04:21] LABS: ALT (SGPT) 54 U/L (0-50); AST (SGOT) 43 U/L (17-59); Alkaline Phosphatase 78 U/L (38-126); Blood Urea Nitrogen 21 mg/dl (9-20); Calcium 9.2 mg/dl (8.4-10.2); Carbon Dioxide 22 mmol/L (22-30); Chloride 105 mmol/L (98-107); Estimated Creatinine Clearance 103 ml/min; Glucose 86 mg/dl (70-99); Potassium 4.1 mmol/L (3.5-5.1); Sodium 134 mmol/L (135-145); Total Protein 6.3 g/dl (6.3-8.2); eGFR > 60.00
[2024-03-27 04:30] LABS: NT-proBNP 61.4 pg/ml
[2024-03-27 04:36] LABS: Troponin I 0.495 ng/ml
--- NOTE | 2024-03-27 08:04 | W.PN.CD ---
Today's Communication / Plan
-
give lasix 20mg IV x1
retime and reduce bb
hold acei for today
continue hep
cath friday unless needed more urgently
Impression / Plan
-
PCP: Gregg Hamilton MD
CDY: Gokul Serrano MD (new to pt)
Impression/Plan:
ACS: recurrent cp recent Inferio STEMI with PCI mid LCx into OM2 3.5x22mm RADHA on 03/22/24
-after d/w Dr Erickson and review of films suspect possible jailed OM3 as source
-hep gtt started, continue DAPT
-pk trop is 0.75
-urgent echo just performed and reviewed without effusion or regional wall motions
-plan for relook on 03/29 unless more urgent evaluation need
-bradycardia so will reduce and retime his metoprolol
-will hold lisinopril today for some mild diuresis
HFpEF:
-he has some orthopnea, cxr with interstitial prominence
-suspect 2/2 to ischemia
-will give small dose of lasix today
Myalgia;
-will hold high dose statin and reassess
GERD - continue PPI
Smoking - cessation reinforced, he has not smoked even after discharge, congratulated efforts.
CHARBEL/CPAP
Subjective:
sob with lying flat, 1/10 cp feels better, asking if needs to stay
Physical Exam
Vital Signs/Labs
Vital Signs
Temp Pulse Resp BP Pulse Ox
97.4 F 57 16 92/60 96
03/27/24 07:30 03/27/24 07:32 03/27/24 07:30 03/27/24 07:32 03/27/24 07:30
03/26/24 03/27/24 03/28/24
06:59 06:59 06:59
Actual Weight 112.1 kg
03/27/24 03:47
08/10/24 03:47
PT 13.9 Sec (11.4-14.6) 03/27/24 03:47
INR 1.09 03/27/24 03:47
APTT 64.9 Sec (23.4-35.0) H 03/27/24 03:47
03/27/24
03:47
Bbq-B-Saxayjztzbf Pept 61.4
LAB Results
03/26/24 03/26/24 03/26/24
15:25 18:16 23:01
Troponin I 0.588 H* 0.750 H* D 0.704 H*
03/27/24 03/27/24
03:47 04:54
Troponin I 0.495 H* D Cancelled
Physical Exam
Constitutional: No acute distress
Cardiovascular: Rhythm & rate is regular, Pedal edema is absent and JVD pressure is normal
Respiratory: Respiratory effort normal, Lungs clear to auscul., Wheeze Absent, Crackles Absent and Rhonchi Absent
Neuro/Psych: AO x 3
Data Reviewed
-
Date of Service: March 27, 2024
EKG: Other (tele sinus bradycardia)
[2024-03-27] MEDS: BRILINTA 90 MG PO ×2 (08:13→19:22)
[2024-03-27] MEDS: LOW STRENGTH ASPIRIN 81 MG PO (08:13)
[2024-03-27] MEDS: PROTONIX 40 MG PO (08:13)
--- NOTE | 2024-03-27 09:37 | PTCARENOTE ---
Assumed care at 0700. Patient with 1 out 10 dull central chest pressure,SB 40's-50's,BP 92/50 this morning, re-assessed 110/69. Heparin gtt infusing per OCT. Bedside echo completed. Call melgar in reach
[2024-03-27] MEDS: LASIX 20 MG IV (11:00)
[2024-03-27 11:25] LABS: APTT 72.1 Sec (23.4-35.0)
[2024-03-27] MEDS: HEPARIN 25000 UNITS/250 ML IV (11:32)
--- NOTE | 2024-03-27 17:43 | PTCARENOTE ---
Patient with chest pressure on and off during the day, rating 1 -3 on a pain scale. Heparin infusing per MAR, SB on telemetry. VSS, PTT collected
[2024-03-27 17:54] LABS: APTT 85.7 Sec (23.4-35.0)
[2024-03-27] MEDS: NITROSTAT (SUBLINGUAL) 0.4 MG SL (22:30)
[2024-03-27] MEDS: TYLENOL 1000 MG PO (22:43)
[2024-03-27] MEDS: TOPROL XL PO (23:14)
--- NOTE | 2024-03-27 23:16 | W.PN.UPDATE ---
Update Note
Progress Note Update
Requested to see patient by RN who reports increase in chest pain to 4/10 from 2/10 (baseline today). SL NTG already given and pain improved to 2/. Pt seen/examined by me, RRR S1S2 +2 radial lungs clear. EKG reviewed, no STEMI criteria
identified. Discussed with numerical control lathe operator car washer, sent EKGs, if pain worsens and SBP > 120 plan to start nitro drip.
--- NOTE | 2024-03-27 23:53 | PTCARENOTE ---
Pt received start of shift, HR SB/SR. Pt still w/ CP 1-2 out of 10 in L chest. Reinforced limited activity w/ pt, pt states understanding. Heparin infusing at 1700u/hr. Informed to notify RN if worsening CP, any SOB, or radiation of pain. Call melgar
within reach.
Pt used call melgar to inform RN that CP 4/10 radiating from L chest into b/l shoulders and down arms. EKG obtained. CVNP Jimi notified. SL nitro x1 administered - effective. Pain now down to 1-2 out of 10 accompanied w/ radiation. BP after x1 SL
nitro 92/61. Pt c/o MORRIS - tylenol administered (see MAR). Dr. Velazquez aware, nitro gtt to be started if SBP maintains >120.
On reassessment, pt denies radiation to b/l shoulders + arms. CP in L chest 1.
[2024-03-28 00:01] LABS: APTT 98.2 Sec (23.4-35.0)
[2024-03-28] MEDS: HEPARIN 25000 UNITS/250 ML IV ×2 (02:41→21:43)
[2024-03-28 04:43] VITALS: BP 104/67
[2024-03-28 04:45] VITALS: BMI 39.1
[2024-03-28 05:45] LABS: APTT 156.5 Sec (23.4-35.0)
--- NOTE | 2024-03-28 08:12 | W.PN.CD ---
Today's Communication / Plan
-
continue current iv hep gtt with intensive monitoring
no more lasix
npo p midnight
Impression / Plan
-
PCP: Gregg Hamilton MD
CDY: Gokul Serrano MD (new to pt)
Impression/Plan:
ACS: recurrent cp recent Inferio STEMI with PCI mid LCx into OM2 3.5x22mm RADHA on 03/22/24
-after d/w Dr Erickson and review of films suspect possible jailed OM3 as source
-hep gtt started, continue DAPT
-pk trop is 0.75
-cp improved ecg without change
-urgent echo just performed and reviewed without effusion or regional wall motions
-plan for relook on 03/29 unless more urgent evaluation need
-bradycardia so will reduce and retime his metoprolol
-will hold lisinopril today incase nitro needed.
HFpEF:
-he has some orthopnea, cxr with interstitial prominence
-suspect 2/2 to ischemia
-improved
-great response to single dose of lasix, non further planned
Myalgia;
-will hold high dose statin and reassess
GERD - continue PPI
Smoking - cessation reinforced, he has not smoked even after discharge, congratulated efforts.
CHARBEL/CPAP
Subjective:
episode of 4/10 cp resolved after nitro, no back to his 08/27 , sob better with lasix
Physical Exam
Vital Signs/Labs
Vital Signs
Temp Pulse Resp BP Pulse Ox
97.6 F 48 18 104/67 97
03/28/24 04:43 03/28/24 05:30 03/28/24 04:43 03/28/24 04:43 03/28/24 04:43
03/27/24 03/28/24 03/29/24
06:59 06:59 06:59
Actual Weight 112.1 kg 109.7 kg
03/27/24 03:47
PT 13.9 Sec (11.4-14.6) 03/27/24 03:47
INR 1.09 03/27/24 03:47
APTT 156.5 Sec (23.4-35.0) H* 03/28/24 04:50
03/27/24
03:47
Rbs-S-[place] Pept 61.4
LAB Results
03/26/24 03/26/24 03/26/24
15:25 18:16 23:01
Troponin I 0.588 H* 0.750 H* D 0.704 H*
03/27/24 03/27/24
03:47 04:54
Troponin I 0.495 H* D Cancelled
Physical Exam
Constitutional: No acute distress
Cardiovascular: Rhythm & rate is regular, Pedal edema is absent, JVD pressure is normal, Systolic murmur absent and Diastolic murmur absent
Respiratory: Respiratory effort normal, Lungs clear to auscul., Wheeze Absent, Crackles Absent and Rhonchi Absent
Neuro/Psych: AO x 3
Data Reviewed
-
Date of Service: March 28, 2024
EKG: Other (tele nsr)
[2024-03-28 08:15] VITALS: BP 93/45
[2024-03-28 08:58] LABS: Albumin 4.5 g/dl (3.5-5.0); Blood Urea Nitrogen 22 mg/dl (9-20); Calcium 9.5 mg/dl (8.4-10.2); Carbon Dioxide 28 mmol/L (22-30); Chloride 103 mmol/L (98-107); Estimated Creatinine Clearance 102 ml/min; Glucose 94 mg/dl (70-99); Potassium 4.2 mmol/L (3.5-5.1); Sodium 135 mmol/L (135-145); eGFR > 60.00
[2024-03-28] MEDS: LOW STRENGTH ASPIRIN 81 MG PO (09:10)
[2024-03-28] MEDS: PROTONIX 40 MG PO (09:10)
[2024-03-28] MEDS: TYLENOL 1000 MG PO ×2 (09:11→19:52)
[2024-03-28] MEDS: BRILINTA 90 MG PO ×2 (09:11→19:37)
[2024-03-28 12:32] VITALS: BP 104/63
[2024-03-28 13:03] LABS: APTT 72.5 Sec (23.4-35.0)
--- NOTE | 2024-03-28 14:46 | PTCARENOTE ---
Patient with no complaints, SB HR in the 50's. Heparin infusing at 1600 units/hr. Plan of care reviewed.
[2024-03-28 16:16] VITALS: BP 108/61
[2024-03-28 19:19] VITALS: BP 103/69
[2024-03-28 20:08] LABS: APTT 85.9 Sec (23.4-35.0)
[2024-03-28 22:31] VITALS: BP 121/73
[2024-03-28] MEDS: TOPROL XL PO (22:36)
--- NOTE | 2024-03-28 22:39 | PTCARENOTE ---
Pt received start of shift, HR SB. Pt washed self w/ assistance from . After slight exertion CP 3-4 out of 10 with no radiation. Tylenol administered - effective see OCT. Reinforced NPO status at 0000 w/ pt. Pt states no questions about
procedure or condition. Informed to notify RN if any worsening CP, radiation of pain, SOB or any other changes. Call melgar within reach.
[2024-03-29] VITALS (13 sets, daily range): BP systolic 99–119; BP diastolic 59–77; PULSE 65; BMI 39.2
[2024-03-29 02:58] LABS: APTT 114.5 Sec (23.4-35.0)
--- NOTE | 2024-03-29 07:37 | W.PN.CD ---
Addendum entered and electronically signed by Scott Serrano MD 03/29/24 17:41:
Cardiac cath without epicardial obstructive disease to explain recurrent pain / troponin elevation. Will initiate long acting nitrate for additional anginal control (he notes symptomatic relief from SLN during both his index admission and this
readmission).
Original Note:
Today's Communication / Plan
-
cardiac cath today, further recs to follow
Impression / Plan
-
Impression/Plan:
ACS: recurrent chest pain after recent inferior STEMI with PCI mid LCx into OM2 3.5x22mm RADHA on 03/22/24, now with recurrent pain and mild troponin elevation
-jailed distal LCx possible source, will re-evaluate with coronary angiography
-pk trop is 0.75
-urgent echo without effusion or regional wall motion
-hep gtt started, continue DAPT
-bradycardia so will reduce and retime his metoprolol to bedtime
-will hold lisinopril today, can use nitro as needed for cp/blood pressure
HFpEF:
-he has some orthopnea, cxr with interstitial prominence
-suspect 2/2 to ischemia
-improved
-great response to single dose of lasix, non further planned
Myalgia:
-decrease statin dose to 40 mg and reassess as outpatient, can consider transition to different statin as outpatient
GERD: continue PPI
Smoking: cessation reinforced, he has not smoked even after discharge
Subjective:
chest pain 08/27 today
discussed plan for coronary angiography
Physical Exam
Vital Signs/Labs
Vital Signs
Temp Pulse Resp BP Pulse Ox
36.6 C 49 20 117/70 97
03/29/24 07:09 03/29/24 06:15 03/29/24 07:09 03/29/24 02:24 03/29/24 07:09
03/28/24 03/29/24 03/30/24
06:59 06:59 06:59
Actual Weight 109.7 kg 110.1 kg
03/27/24 03:47
03/28/24 08:35
PT 13.9 Sec (11.4-14.6) 03/27/24 03:47
INR 1.09 03/27/24 03:47
APTT 114.5 Sec (23.4-35.0) H 03/29/24 02:28
03/27/24
03:47
Rlb-W-Fdjvmjrvzkp Pept 61.4
LAB Results
03/26/24 03/26/24 03/26/24
15:25 18:16 23:01
Troponin I 0.588 H* 0.750 H* D 0.704 H*
03/27/24 03/27/24
03:47 04:54
Troponin I 0.495 H* D Cancelled
Physical Exam
Constitutional: No acute distress and Comfortable
Cardiovascular: Rhythm & rate is regular
Respiratory: Respiratory effort normal and Lungs clear to auscul.
GI: Soft and Distention absent
Neuro/Psych: Alert, Oriented and AO x 3
Other: Cath Site (radial cdi)
Data Reviewed
-
Date of Service: March 29, 2024
Medical Decision Making: Reviewed Test Results, Independent Historian Assessment and Test Interpretation
EKG: Tracing Personally Visualized and interpreted
Echo: Tracing Personally Visualized and interpreted
X-Ray/CT/US/MRI/NUC/PET: Image Personally Visualized and interpreted
Labs: Labs Reviewed by me
--- NOTE | 2024-03-29 07:52 | PTCARENOTE ---
Received patient this morning resting in bed, IV heparin infusing at 1500 units/hr. Patient states at rest he had a 2/10 midsternal chest pressure, non-radiating. Patient seen by interventionalist, DICKSON x medrabia, for cath this morning.
[2024-03-29] MEDS: BRILINTA 90 MG PO ×2 (08:08→20:18)
[2024-03-29] MEDS: LOW STRENGTH ASPIRIN 81 MG PO (08:08)
[2024-03-29] MEDS: FLUSH (NSS) 1 FLUSH IV (08:09)
[2024-03-29] MEDS: PROTONIX 40 MG PO (08:09)
[2024-03-29 10:12] LABS: APTT 91.8 Sec (23.4-35.0)
--- NOTE | 2024-03-29 13:01 | CM ---
Reviewed chart. Met with Mr. Baeza to review discharge plans. He states prior to admission he resides with his spouse, and two children in a one story home with two steps to enter. He states prior to admission he was independent with ambulation
and adls. He states he does not have any DME in the home. He states he has a prescription plan and uses [facility]. Medical work-up in progress. The discharge plan is to return home with his family when medically stable.
--- NOTE | 2024-03-29 13:07 | PTCARENOTE ---
Patient taken to the laboratory aide at 1245.
[2024-03-29 13:26] LABS: ACT-LR - POC 263 Seconds (116-155)
[2024-03-29] MEDS: TYLENOL 1000 MG PO (14:14)
--- NOTE | 2024-03-29 14:25 | PTCARENOTE ---
Received patient from the laborer prestressed concrete after cardiac cath via R radial artery. Radial band in place which is dry and intact. IV NS infusing, reviewed post cath restrictions. Patient complaining of right shoulder discomfort rated 7/10, which he feels is
from how he was lying for the procedure. Medicated with extra strength tylenol, call melgar in reach.
--- NOTE | 2024-03-29 15:02 | ITS.CL.CATH ---
Provider Service Representative - Catheterization
Cardiac Catheterization
Procedure Report:
Procedure Report:
CARDIAC CATHETERIZATION REPORT
Date of Procedure: 03/29/2024
Referring: Manuel Velazquez MD
Indication: NSTEMI
HEMODYNAMIC DATA
AO: 90/63 (74) mmHg
LV: 94/17 (21) mmHg
�
CORONARY ANGIOGRAPHY
Dominance: right
Left Main: normal
LAD: There is a 20-30% stenosis in the mid-LAD distal to the takeoff of the first diagonal branch. The remainder of the LAD system has mild luminal irregularities.
Circumflex: There is a patent stent extending from the mid-LCx into the large OM2, jailing the continuation of the LCx. The stent is widely patent and there is normal flow distally in all branches.
RCA: The RCA is a dominant vessel with trivial luminal irregularities. The RCA terminates with a medium-sized RPDA and small posterolateral system.
The decision was made to perform physiologic testing. The diagnostic catheter was removed over a wire and exchanged for a EBU 3.75 guiding catheter. The guiding catheter was advanced into the ascending aorta and seated in the LMCA. Additional
heparin was given to obtain an ACT greater than 250 seconds. An iFR wire was zeroed outside of the body, then inserted into the guiding sheath. The wire was advanced and the transducer was normalized just outside of the guiding catheter tip. The
wire was advanced into the OM2 distal to the stent. the iFR was 1.0. The iFR wire was redirected into the distal LCx. The iFR was 1.0. iFR pullback confirmed appropriate normalization.
Closure Device: TR band
�
Fluoro Time (mins): 8.9
Radiation (mGy): 618.23
DAP (cm2.Gy): 37.3597
�
CONCLUSIONS
1.� Coronary angiography demonstrates patent prior stent in the OM2 and otherwise no obstructive coronary disease..
2.� iFR of the distal OM2 and the jailed distal LCx were both normal at 1.0
3. Consider microvascular disease as possible etiology of [place] presentation
RECOMMENDATIONS:
1: Continue DAPT for at least 1 year with ASA and ticagrelor.
2. Aggressive secondary prevention of coronary artery disease with goal LDL<70. If patient continues to experience myalgias on atorvastatin 40 mg, transition to rosuvastatin 20 mg.
3. Addition of long acting nitrate for possible microvascular disease.
4. Smoking cessation.
�
Copy to: Scott Serrano MD, PhD; Gregg Hamilton MD
�
Scott Serrano MD, PhD
[2024-03-29] MEDS: LIPITOR 40 MG PO (18:26)
--- NOTE | 2024-03-29 19:00 | PTCARENOTE ---
visiting, patient is anxious to go home and was hoping to leave tonight. Tt to Dr. Serrano, will recheck EKG in the AM and be sure he is chest pain free and tolerates imdur. Patient and told we will try to discharge first thing in the AM.
[2024-03-29] MEDS: TOPROL XL 12.5 MG PO (22:47)
--- NOTE | 2024-03-30 02:00 | PTCARENOTE ---
Pt. received at change of shift. VSS, Sinus keon on tele. Patient denies chest pain at rest and states he occasionally gets 1/10 chest tightness when ambulating to bathroom which resolves with rest. R radial cath site dressing dry/intact with no
complications noted. Education provided on activity restrictions and patient verbalizes understanding. Ambulating independently in room without difficulty. Can make needs known. Call melgar within reach.
[2024-03-30 03:30] VITALS: PULSE 69
[2024-03-30 05:20] VITALS: BP 102/70
[2024-03-30 05:31] VITALS: BMI 38.8
[2024-03-30 05:35] LABS: Hematocrit 37.2 % (39.0-52.0); Hemoglobin 13.4 g/dL (13.0-18.0); Mean Corpuscular Hgb 32.3 pg (27.0-31.0); Mean Corpuscular Volume 89.6 fL (80.0-94.0); Mean Platelet Volume 11.1 fL (7.4-10.4); Platelet Count 191 10^3/uL (130-400); Red Blood Cell Count 4.15 10^6/uL (4.70-6.10); Red Cell Dist. Width 12.6 % (11.5-14.5); White Blood Cell Count 6.5 10^3/uL (4.8-10.8)
[2024-03-30 05:59] LABS: Blood Urea Nitrogen 16 mg/dl (9-20); Calcium 9.7 mg/dl (8.4-10.2); Carbon Dioxide 24 mmol/L (22-30); Chloride 105 mmol/L (98-107); Estimated Creatinine Clearance 113 ml/min; Glucose 84 mg/dl (70-99); HDL Cholesterol 39 mg/dl; LDL Cholesterol, Calculated 79 mg/dl; Potassium 4.4 mmol/L (3.5-5.1); Sodium 136 mmol/L (135-145); Total Cholesterol 144 mg/dl (50-199); Triglyceride 134 mg/dl (10-149); Very Low Density Lipoprotein 26 mg/dl (0-30); eGFR > 60.00
--- NOTE | 2024-03-30 07:20 | W.PN.CD ---
Addendum entered and electronically signed by Scott Serrano MD 03/30/24 13:53:
Clarification requested per CDI inquiry:
HFpEF, is acute on chronic in duration
Original Note:
Today's Communication / Plan
-
discharge today on current regimen; arrange for cardiac rehab; follow up with me in the office 1 month
Impression / Plan
-
Impression/Plan:
ACS: recurrent chest pain after recent inferior STEMI with PCI mid LCx into OM2 3.5x22mm RADHA on 03/22/24, repeat cath with iFR demonstrates patent stent and no flow limiting epicardial blockages
-pk trop is 0.75, now downtrending
-echo without effusion or regional wall motion
-plan to discharge today on current regimen: ASA/ticag, atorvastatin 40 mg (reduced from 80 given concern for possible myalgias, though sounds more like joint pain), metop qHS, isosorbide, lisinopril
-cardiac rehab
-follow up in the office within 1 month
HFpEF: had some orthopnea, cxr with interstitial prominence, improved with single dose of lasix
Joint discomfort: decrease statin dose to 40 mg and reassess as outpatient, can consider transition to different statin as outpatient if true myalgia symptoms though in discussion with patient sounds more like joing pain
GERD: continue PPI
Smoking: cessation reinforced, he has not smoked even after discharge
Subjective:
chest pain 08/27 today
plan for discharge in AM
Physical Exam
Vital Signs/Labs
Vital Signs
Temp Pulse Resp BP Pulse Ox
36.5 C 54 18 102/70 99
03/30/24 05:19 03/30/24 05:20 03/30/24 05:19 03/30/24 05:20 03/30/24 05:19
03/29/24 03/30/24 03/31/24
06:59 06:59 06:59
Actual Weight 110.1 kg 109.1 kg
03/30/24 05:17
03/30/24 05:17
PT 13.9 Sec (11.4-14.6) 03/27/24 03:47
INR 1.09 03/27/24 03:47
APTT Cancelled 03/29/24 15:45
Triglycerides 134 mg/dl (10-149) 03/30/24 05:17
LDL Cholesterol, Calc 79 mg/dl 03/30/24 05:17
VLDL Cholesterol, Calc 26 mg/dl (0-30) 03/30/24 05:17
HDL Cholesterol 39 mg/dl 03/30/24 05:17
03/27/24
03:47
Vol-K-Rgrxxqnkcmp Pept 61.4
Physical Exam
Constitutional: No acute distress and Comfortable
Cardiovascular: Rhythm & rate is regular and JVD pressure is normal
Respiratory: Respiratory effort normal and Lungs clear to auscul.
GI: Soft and Distention absent
Neuro/Psych: Alert, Oriented and AO x 3
Data Reviewed
-
Date of Service: March 30, 2024
Medical Decision Making: Reviewed Test Results
EKG: Tracing Personally Visualized and interpreted
Labs: Labs Reviewed by me
[2024-03-30 07:39] VITALS: BP 111/76
[2024-03-30] MEDS: LOW STRENGTH ASPIRIN 81 MG PO (08:35)
[2024-03-30] MEDS: BRILINTA 90 MG PO (08:35)
[2024-03-30] MEDS: PROTONIX 40 MG PO (08:35)
[2024-03-30] MEDS: IMDUR (EXTENDED RELEASE) 30 MG PO (08:36)
[2024-03-30] MEDS: FLUSH (NSS) 1 FLUSH IV (08:36)
--- NOTE | 2024-03-30 09:01 | W.DS.TRANS ---
DC Summary - Technical Administrator
-
Discharge Instructions:
Discharge Diagnosis/Procedures Cardiac catheterization
Diet Low Cholesterol
Driving Restrictions No driving for 24 hours
Other Services Cardiac Rehab
Instructions:
Stand-Alone Forms: DC Instructions- Cath/EP Lab
Changes to Home Medications: Yes
Discharge Medications:
DC Medications w/original date entered in [employer]
omeprazole 20 mg capsule,delayed release 20 mg PO DAILY Gastrointestinal Issue 03/22/24
ticagrelor 90 mg tablet (Brilinta) 90 mg PO BID #180 tabs 03/23/24
aspirin 81 mg chewable tablet 81 mg PO DAILY #1 tab 03/24/24
lisinopril 5 mg tablet 5 mg PO DAILY #90 tabs 03/24/24
metoprolol succinate 25 mg tablet,extended release 24 hr 25 mg PO DAILY #90 tabs 03/24/24
nitroglycerin 0.4 mg sublingual tablet 0.4 mg sublingual [id number] PRN chest pain #25 tabs 03/24/24
atorvastatin 80 mg tablet 40 mg (1/2 x 80 mg) PO QPM #90 tabs 03/30/24
isosorbide mononitrate 30 mg tablet,extended release 24 hr 30 mg PO DAILY #90 tabs 03/30/24
Home Medication Changes
NEW: isosorbide
DOSE DECREASE: atorvastatin
Pending Results: No
--- NOTE | 2024-03-30 09:19 | PTCARENOTE ---
Received patient this morning resting in bed, denies any pain, had a good night. Seen by Dr. Serrano and is ok for discharge.
--- NOTE | 2024-03-30 09:53 | PTCARENOTE ---
Reviewed discharge instructions with the patient and he states his understanding. Patient discharged home.
--- NOTE | 2024-03-30 13:38 | PN.CDI ---
CDI
- -
CDI:
Physician Documentation Request
Admit Date: 03/26/24 21:31
Dear Doctor Maggie,
03/30 cardiology notes states 'HFpEF: had some orthopnea, cxr with interstitial prominence, improved with single dose of lasix'
Please clarify which of the following accurately represents the acuity of the heart failure
____ Acute
Acute on Chronic
Chronic
Use of terms such as suspected, likely, concern for, or probable (associated with a specific diagnosis that is being evaluated, monitored, or treated as if it exists) are acceptable and can be coded in the inpatient setting, when documented at the
time of discharge.
Thank you,
Aliyah Tafoya RN, BSN
CDI Specialist
tiger text
Please use your independent medical judgment in providing your response.
== END 2024-03-30 09:55 | disposition home or self-care (01) | DRG 280 ==
LOC: IVU 21:31
PROVIDERS: Nurse Practitioner; Physician Assistant; Student in an Organized Health Care Education/Training Program; ADMITTING PHYSICIAN Internal Medicine Cardiovascular Disease; EMERGENCY PHYSICIAN Emergency Medicine; FAMILY PHYSICIAN Family Medicine
PROC: 4A033BC Measurement of Arterial Pressure, Coronary, Percutaneous Approach (ICD-10-PCS; 2024-03-29)
PROC: B2111ZZ Fluoroscopy of Multiple Coronary Arteries using Low Osmolar Contrast (ICD-10-PCS; 2024-03-29)
PROC: 4A023N7 Measurement of Cardiac Sampling and Pressure, Left Heart, Percutaneous Approach (ICD-10-PCS; 2024-03-29)
DX: I21.19 ST elevation (STEMI) myocardial infarction involving other coronary artery of inferior wall (principal); I50.33 Acute on chronic diastolic (congestive) heart failure; I25.10 Atherosclerotic heart disease of native coronary artery without angina pectoris; I11.0 Hypertensive heart disease with heart failure; Z95.5 Presence of coronary angioplasty implant and graft; K21.9 Gastro-esophageal reflux disease without esophagitis; M79.10 Myalgia, unspecified site; G47.33 Obstructive sleep apnea (adult) (pediatric); F17.200 Nicotine dependence, unspecified, uncomplicated; E78.00 Pure hypercholesterolemia, unspecified; Z88.0 Allergy status to penicillin; Z79.82 Long term (current) use of aspirin; Z79.899 Other long term (current) drug therapy
CPT/HCPCS: 93308; 71046; 80048; 80053; 80061; 80069; 83880; 84484; 85025; 85027; 85347; 85610; 85730; 93005; 93321; 93325; 93458; 93571; 94660; 96361; 96365; 96367; 96375; 99291; C1769; C1887; C1894; Q9967

== ENCOUNTER → 2024-10-04 09:01 | Outpatient (REF) | payer BC, SELFPAY | LOC: RCS 09:01 | PROVIDERS: ATTENDING PHYSICIAN Student in an Organized Health Care Education/Training Program; FAMILY PHYSICIAN Family Medicine | DX: R07.89 Other chest pain (principal); R06.02 Shortness of breath | CPT/HCPCS: 93306 ==

== ENCOUNTER → 2024-10-05 06:55 | Outpatient (REF) | payer BC, SELFPAY | LOC: HWRCS 06:55 | PROVIDERS: ATTENDING PHYSICIAN Student in an Organized Health Care Education/Training Program; FAMILY PHYSICIAN Family Medicine | DX: R07.89 Other chest pain (principal); R06.02 Shortness of breath | CPT/HCPCS: 78452; 93017; A9500; J2785 ==

== ENCOUNTER → 2025-01-11 08:14 | Outpatient (REF) | payer BC, SELFPAY | LOC: HWRAD 08:14 | PROVIDERS: ATTENDING PHYSICIAN Internal Medicine | DX: Z87.891 Personal history of nicotine dependence (principal) | CPT/HCPCS: 71271 ==